=== PATIENT | female | born 1985 | race Caucasian/White ===

== ENCOUNTER 2017-01-05 21:02 | Observation (INO) | payer OTHER ==
[~2017-01-05] VITALS: Ht 160 cm; Wt 97.5 kg
[2017-01-05 21:04] VITALS: BP 133/67; PULSE 64; RESP 16; TEMP 98.1; O2SAT 98
[2017-01-05 22:26] VITALS: BP 156/92; PULSE 68; RESP 18
[2017-01-05] MEDS ORDERED: SODIUM CHLOR 0.9% 1000 ML INJ 1,000 ML IV ONE (23:00)
[2017-01-05] MEDS ORDERED: KETOROLAC TROMETHAMINE 30 MG/ML (IVP) VIAL IV PUSH ONE (23:00)
[2017-01-05 23:04] LABS: AUTOMATED NEUTROPHIL # 4.4 TH/MM3 (1.8-7.7); BASOPHIL # 0.1 TH/MM3 (0-0.2); BASOPHIL % 0.8 % (0.0-2.0); EOSINOPHIL # 0.2 TH/MM3 (0-0.4); EOSINOPHIL % 2.1 % (0.0-4.0); HEMO FLAGS DIFF FINAL; LYMPH % 31.9 % (9.0-44.0); LYMPHOCYTE # 2.7 TH/MM3 (1.0-4.8); MEAN CELL VOLUME 89.6 FL (80.0-100.0); MEAN CORPUSCULAR HEMOGLOBIN 30.9 PG (27.0-34.0); MEAN CORPUSCULAR HGB CONC 34.5 % (32.0-36.0); MONO % 12.7 % (0.0-8.0); NEUT % 52.5 % (16.0-70.0); PLATELET COUNT 287 TH/MM3 (150-450); RED BLOOD COUNT 4.58 MIL/MM3 (4.00-5.30); RED CELL DISTRIBUTION WIDTH 12.4 % (11.6-17.2); WHITE BLOOD COUNT 8.5 TH/MM3 (4.0-11.0)
[2017-01-05 23:32] LABS: ALT (GPT) 35 U/L (10-53); ANION GAP 8 MEQ/L (5-15); AST (GOT) 16 U/L (15-37); BICARBONATE 28.8 MEQ/L (21.0-32.0); BLOOD UREA NITROGEN 10 MG/DL (7-18); CHLORIDE 106 MEQ/L (98-107); GLOMERULAR FILTRATION RATE 86 ML/MIN (>89); POTASSIUM 3.6 MEQ/L (3.5-5.1); SODIUM (NA) 143 MEQ/L (136-145)
[2017-01-05 23:35] LABS: ALKALINE PHOSPHATASE 66 U/L (45-117); BETA HCG QUANT LESS THAN 1 MIU/ML (0-5); TOTAL BILIRUBIN ADULT 0.2 MG/DL (0.2-1.0)
[2017-01-05 23:43] VITALS: BP 152/85; PULSE 60; RESP 16; O2SAT 100
--- NOTE | 2017-01-05 23:48 | PD ---
HPI Chief Complaint: Syncope/Near-Syncope Time Seen by Provider: 22:16 Travel History International Travel<30 days: No Contact w/Intl Traveler<30days: No Traveled to known affect area: No History of Present Illness HPI Is a 31-year-old woman who presents to the emergency department complaining of recurrent episodes of syncope. She's never had trouble with this before. Starting 2 days ago she had an episode where she felt briefly lightheaded after using the bathroom. She didn't came to on the bed where her partner had carried her. She had no recollection of any of the events. She had a second episode on Sunday where she was in the closet and again woke up on the floor. She fall and on her face. She was seen at an outside hospital and had a negative workup that included a head CT and labs. They thought it was happening because she was on her menstrual cycle. She is a history of PCO asbeginning menstrual cycles for past 6 months or so. She denies it being especially heavy. She did have little bit of bloody stool with some abdominal pain, but otherwise had been feeling well. She had another episode and went back to the emergency department History Past Medical History Medical History: Denies Significant Hx LMP: 01/05/17 Social History Alcohol Use: No Tobacco Use: No Allergies-Medications (Allergen,Severity, Reaction): Coded Allergies: Ancef (Verified Allergy, Severe, Anaphylaxis, 01/05/17) Morphine (Verified Allergy, Intermediate, Hives, 01/05/17) Reported Meds & Prescriptions Reported Meds & Active Scripts Active No Active Prescriptions or Reported Medications Physical Exam Narrative GENERAL: Well-appearing 31-year-old woman, no acute distress. SKIN: Warm and dry. HEAD: Atraumatic. Normocephalic. EYES: Pupils equal and round. No scleral icterus. No injection or drainage. ENT: No nasal bleeding or discharge. Mucous membranes pink and moist. NECK: Trachea midline. No JVD. CARDIOVASCULAR: Regular rate and rhythm. No murmur appreciated. RESPIRATORY: No accessory muscle use. Clear to auscultation. Breath sounds equal bilaterally. GASTROINTESTINAL: Abdomen soft, non-tender, nondistended. Hepatic and splenic margins not palpable. MUSCULOSKELETAL: No obvious deformities. No edema. NEUROLOGICAL: Awake and alert. No obvious cranial nerve deficits. Motor grossly within normal limits. Normal speech. PSYCHIATRIC: Appropriate mood and affect; insight and judgment normal. Data Data Last Documented VS Vital Signs Date Time Temp Pulse Resp B/P Pulse Ox O2 Delivery O2 Flow Rate FiO2 01/05/17 22:26 68 18 156/92 Room Air 01/05/17 21:04 98.1 98 Orders Electrocardiogram (01/05/17 ) Complete Blood Count With Diff (01/05/17 22:37) Comprehensive Metabolic Panel (01/05/17 22:37) Beta Hcg (Quant/Titer) (01/05/17 22:37) Iv Access Insert/Monitor (01/05/17 22:37) Sodium Chlor 0.9% 1000 Ml Inj (Ns 1000 M (01/05/17 23:00) Ketorolac Inj (Toradol Inj) (01/05/17 23:00) Labs Laboratory Tests Test 01/05/17 22:40 White Blood Count 8.5 TH/MM3 Red Blood Count 4.58 MIL/MM3 Hemoglobin 14.2 GM/DL Hematocrit 41.0 % Mean Corpuscular Volume 89.6 FL Mean Corpuscular Hemoglobin 30.9 PG Mean Corpuscular Hemoglobin 34.5 % Concent Red Cell Distribution Width 12.4 % Platelet Count 287 TH/MM3 Mean Platelet Volume 9.1 FL Neutrophils (%) (Auto) 52.5 % Lymphocytes (%) (Auto) 31.9 % Monocytes (%) (Auto) 12.7 % Eosinophils (%) (Auto) 2.1 % Basophils (%) (Auto) 0.8 % Neutrophils # (Auto) 4.4 TH/MM3 Lymphocytes # (Auto) 2.7 TH/MM3 Monocytes # (Auto) 1.1 TH/MM3 Eosinophils # (Auto) 0.2 TH/MM3 Basophils # (Auto) 0.1 TH/MM3 CBC Comment DIFF FINAL Differential Comment Sodium Level 143 MEQ/L Potassium Level 3.6 MEQ/L Chloride Level 106 MEQ/L Carbon Dioxide Level 28.8 MEQ/L Anion Gap 8 MEQ/L Blood Urea Nitrogen 10 MG/DL Creatinine 0.78 MG/DL Estimat Glomerular Filtration 86 ML/MIN Rate Random Glucose 86 MG/DL Calcium Level 8.9 MG/DL Total Bilirubin 0.2 MG/DL Aspartate Amino Transf 16 U/L (AST/SGOT) Alanine Aminotransferase 35 U/L (ALT/SGPT) Alkaline Phosphatase 66 U/L Total Protein 7.2 GM/DL Albumin 3.7 GM/DL Human Chorionic Gonadotropin, LESS THAN 1 Quant MIU/ML MDM Medical Decision Making Medical Screen Exam Complete: Yes Emergency Medical Condition: Yes Interpretation(s) My review of EKG: Sinus bradycardia rate of 57, normal axis, normal intervals, no ischemia. LABS: CBC unremarkable. CMP unremarkable HCG negative Differential Diagnosis Arrhythmia, vasovagal episodes, pots syndrome, anxiety, anemia, other Narrative Course Medical decision making This a 31-year-old woman presents to the emergency department with 3 syncopal episodes in the past 48 hours with no history of similar symptoms. No clear precipitants. She does have some premonitory lightheadedness lasting just a few seconds. No clear seizure like activity. We'll risk for arrhythmia. We' ll plan on trying to obtain outpatient records. Monitor on telemetry. Consider EEG, tilt table testing, her for further evaluation as an outpatient. Diagnosis Primary Impression: Syncope Qualified Code: R55 - Syncope, unspecified syncope type Scripts No Active Prescriptions or Reported Meds Maged Capone MD Jan 05, 2017 23:48
[2017-01-06] MEDS ORDERED: SODIUM CHLORIDE 0.9% FLUSH 5 ML FLUSH IVF PRN
[2017-01-06 02:24] VITALS: O2SAT 100
[2017-01-06 03:29] VITALS: BP 134/83; PULSE 55; RESP 18; TEMP 98.6; O2SAT 98
[2017-01-06] MEDS: ACETAMINOPHEN/HYDROcodone 325 MG/7.5 MG TAB PO PRN ×3 (04:15→14:32)
--- NOTE | 2017-01-06 08:30 | RADRPT ---
EXAM DATE/TIME: 01/06/2017 08:04 [facility] COMPARISON: No previous studies available for comparison. INDICATIONS : Right hip pain post fall yesterday MEDICAL HISTORY : None. SURGICAL HISTORY : None. ENCOUNTER: Initial ACUITY: 1 day PAIN SCORE: 5/10 LOCATION: Right entire hip FINDINGS: Examination of the right hip was performed with AP Pelvis. The primary and secondary trabecular amrit huma of the femoral neck is intact. The hip joint is of normal width without significant sclerosis or bony hypertrophy. The acetabulum is grossly intact. CONCLUSION: Unremarkable right hip. Ted Monterroso MD on January 06, 2017 at 8:29 Board Certified Radiologist. This report was verified electronically.
[2017-01-06 08:40] VITALS: BP 130/86; PULSE 63; RESP 18; TEMP 98.2; O2SAT 97
[2017-01-06] MEDS: SODIUM CHLORIDE 0.9% FLUSH 5 ML FLUSH IVF SCH ×2 (08:53→20:08)
[2017-01-06 11:17] VITALS: BP 132/76; PULSE 65; RESP 18; TEMP 97.8; O2SAT 97
--- NOTE | 2017-01-06 12:59 | EKG ---
Date Performed: 01/05/2017 Time Performed: 21:58:25 PTAGE: 31 years EKG: SINUS BRADYCARDIA BORDERLINE ECG NO PREVIOUS TRACING DOCTOR: Allan Rosas Interpretating Date/Time 01/06/2017 12:58:20
[2017-01-06] MEDS ORDERED: NAPROXEN 500 MG TAB PO ONE (16:30)
[2017-01-06] MEDS ORDERED: MAGNESIUM CITRATE SOLN 300 ML BTL PO ONE ×2 (17:00→19:30)
--- NOTE | 2017-01-06 17:10 | RADRPT ---
EXAM DATE/TIME: 01/06/2017 16:18 [facility] COMPARISON: No previous studies available for comparison. INDICATIONS : Abdominal Pain MEDICAL HISTORY : None. SURGICAL HISTORY : Gallbladder surgery, Ovarian cyst removal ENCOUNTER: Initial ACUITY: 1 day PAIN SCORE: 8/10 LOCATION: Bilateral Abdomen FINDINGS: Supine view of the abdomen was performed. The abdominal bowel gas pattern is normal. No abnormal ma sses, calcifications, or organomegaly is seen. The osseous structures are unremarkable. CONCLUSION: 1. No acute findings. Previous cholecystectomy. Emanuel Prado MD on January 06, 2017 at 17:08 Board Certified Radiologist. This report was verified electronically.
--- NOTE | 2017-01-06 17:50 | HHI.HP ---
HPI Service [facility] Hospitalists Primary Care Physician No Primary Care Physician Admission Diagnosis Syncope Chief Complaint: loc Travel History International Travel<30 Days: No Contact w/Intl Traveler <30 Da: No Traveled to Known Affected Are: No History of Present Illness Pt is 31 yo female presenting to ED complained of passing out x 3 since Sunday. Pt gives hx as well as her . Says she has hx pcos. Last week had a very heavy menstrual cycle. Had alot of abdomen cramps and pain that started in epigastric area. Pt passed out 3 times. Once coming from the bathroom back to bed, once while doing laundry and passed out into the closet, then again walking in her bedroom. The pain may have correlated with her developing dizzy sensation then losing conciousness. Apparently she hit side of face on tile floor. No sz activity was reported and no loss bowel/bladder. No cp or palpitations. No n/v/d. Pt was clammy according to her . They went to [facility] x 2 and had labwork and CT head and I'm told that was nml. They report being told she may have passed out due to sudden blood loss from menstrual bleeding. They were given a narcotic pain med. At home Pt passed hard stool with blood on stool and on toilet paper, not in the water. She has had some persistence of the abdomen discomfort and cramping. Her is very protective during my visit and said " I am not taking my home until we get some answers". They are worried about a ruptured ovarian cyst. Review of Systems Other syncope x 3 abdomen cramping blood on stool/paper. Past Family Social History Past Medical History PCOS Allergies: Coded Allergies: Ancef (Verified Allergy, Severe, Anaphylaxis, 01/05/17) Morphine (Verified Allergy, Intermediate, Hives, 01/05/17) Family History nc Social History no etoh/tob Physical Exam Vital Signs heent neg heart reg. no murmer neck. no jvd/bruit lung cta abd mild diffuse tenderness. bs/nd ext no edema Vital Signs Date Time Temp Pulse Resp B/P Pulse Ox O2 Delivery O2 Flow Rate FiO2 01/06/17 11:17 97.8 65 18 132/76 97 01/06/17 09:53 18 01/06/17 08:40 98.2 63 18 130/86 97 01/06/17 03:29 98.6 55 18 134/83 98 01/06/17 02:24 100 01/05/17 23:43 60 16 152/85 100 Room Air 01/05/17 22:26 68 18 156/92 Room Air 01/05/17 21:04 98.1 64 16 133/67 98 Laboratory Laboratory Tests Test 01/05/17 22:40 White Blood Count 8.5 Red Blood Count 4.58 Hemoglobin 14.2 Hematocrit 41.0 Mean Corpuscular Volume 89.6 Mean Corpuscular Hemoglobin 30.9 Mean Corpuscular Hemoglobin 34.5 Concent Red Cell Distribution Width 12.4 Platelet Count 287 Mean Platelet Volume 9.1 Neutrophils (%) (Auto) 52.5 Lymphocytes (%) (Auto) 31.9 Monocytes (%) (Auto) 12.7 Eosinophils (%) (Auto) 2.1 Basophils (%) (Auto) 0.8 Neutrophils # (Auto) 4.4 Lymphocytes # (Auto) 2.7 Monocytes # (Auto) 1.1 Eosinophils # (Auto) 0.2 Basophils # (Auto) 0.1 CBC Comment DIFF FINAL Differential Comment Sodium Level 143 Potassium Level 3.6 Chloride Level 106 Carbon Dioxide Level 28.8 Anion Gap 8 Blood Urea Nitrogen 10 Creatinine 0.78 Estimat Glomerular Filtration 86 Rate Random Glucose 86 Calcium Level 8.9 Total Bilirubin 0.2 Aspartate Amino Transf 16 (AST/SGOT) Alanine Aminotransferase 35 (ALT/SGPT) Alkaline Phosphatase 66 Total Protein 7.2 Albumin 3.7 Human Chorionic Gonadotropin, LESS THAN 1 Quant Lipase 271 Result Diagram: 01/05/17223901/05/172239 Assessment and Plan Problem List: (1) Syncope Status: Acute Plan: Pt had syncope x 3. Historically it sounds possible to be vasovagal syncope in relation to abdomen pain/cramping. Had some blood on stool/paper that sounds secondary to constipation/hemorrhoid Has hx pcos and pt/ concerned about ruptured ovarian cyst as she had in past cont tele/holter given ivf last night. not appearing orthostatic will check kub for constipation and give laxates transvag. u/s to eval ovaries. ambulate c/o msk due to falls. asking for stronger pain meds. Problem Qualifiers (1) Syncope: Qualified Code: R55 - Syncope, unspecified syncope type Narendra Melchor MD Jan 06, 2017 17:50
[2017-01-06] MEDS ORDERED: SIMETHICONE 125 MG CHEWABLE TAB PO SCH (18:00)
[2017-01-06 20:00] VITALS: BP 115/60; PULSE 54; PULSE 62; RESP 19; TEMP 98.3; O2SAT 96
[2017-01-06] MEDS: SIMETHICONE 125 MG CHEWABLE TAB PO SCH (20:07)
[2017-01-06] MEDS: ACETAMINOPHEN/HYDROcodone 325 MG/10 MG TAB PO PRN (20:12)
[2017-01-06] MEDS: NAPROXEN 500 MG TAB PO SCH (21:32)
--- NOTE | 2017-01-06 22:55 | RADRPT ---
EXAM DATE/TIME: 01/06/2017 20:43 [facility] COMPARISON: No previous studies available for comparison. INDICATIONS : Pelvic pain. MEDICAL HISTORY : Ovarian cysts. SURGICAL HISTORY : Cholecystectomy. ENCOUNTER: Initial ACUITY: 3 days PAIN SCORE: 6/10 LOCATION: Bilateral pelvis MEASUREMENTS: UTERUS: 9.2 x 3.3 x 4.4 cm ENDOMETRIAL STRIPE: 5 mm RIGHT OVARY: 4.0 x 2.1 x 3.2 cm LEFT OVARY: 2.8 x 2.0 x 2.3 cm FINDINGS: UTERUS: The myometrium has homogeneous echotexture without mass. RIGHT OVARY: Ovary contains no mass or significant cystic lesion. 2 cm follicular cysts. LEFT OVARY: Ovary contains no mass or significant cystic lesion. MISCELLANEOUS: Small amount of free fluid. CONCLUSION: 1. 2 cm follicular cyst right ovary. Trace free fluid. Left ovary and uterus unremarkable. Emanuel Prado MD on January 06, 2017 at 22:53 Board Certified Radiologist. This report was verified electronically.
[2017-01-07] VITALS (11 sets, daily range): BP systolic 104–143; BP diastolic 55–85; PULSE 55–72; RESP 18–19; TEMP 97.7–98; O2SAT 94–96
[2017-01-07] MEDS: ACETAMINOPHEN/HYDROcodone 325 MG/10 MG TAB PO PRN ×4 (03:35→22:23)
[2017-01-07] MEDS: SIMETHICONE 125 MG CHEWABLE TAB PO SCH ×4 (08:57→22:23)
[2017-01-07] MEDS: SODIUM CHLORIDE 0.9% FLUSH 5 ML FLUSH IVF SCH ×2 (08:57→22:22)
[2017-01-07] MEDS: NAPROXEN 500 MG TAB PO SCH ×2 (08:57→22:23)
--- NOTE | 2017-01-07 14:28 | HHI.PR ---
Subjective Remarks Pt ambulating with . says she was dizzy x 2 lying today and x 1 ambulating no syncope. bowels moving and abdomen feels much better. says pt gets tired after dizzy spells and falls immediately to sleep on her chest. Objective Vitals heent neg heart reg lung cta abd s/nt ext no edema no jvd/bruit Vital Signs Date Time Temp Pulse Resp B/P Pulse Ox O2 Delivery O2 Flow Rate FiO2 01/07/17 14:16 134/85 01/07/17 14:16 122/73 01/07/17 14:15 143/76 01/07/17 11:40 65 18 128/65 94 01/07/17 10:44 64 01/07/17 09:30 95 21 01/07/17 07:20 97.7 55 18 104/57 95 01/07/17 04:48 98.0 59 19 116/74 95 01/07/17 00:40 98.0 56 19 108/55 95 01/06/17 20:00 98.3 62 19 115/60 96 01/06/17 20:00 54 01/06/17 01/06/17 01/07/17 15:00 23:00 07:00 Intake Total 480 ml 240 ml Balance 480 ml 240 ml Intake Oral 480 ml 240 ml # Voids 3 3 # Bowel Movements 0 0 Result Diagram: 01/05/17223901/05/170 A/P Problem List: (1) Syncope Status: Acute Plan: Pt had syncope x 3. Historically it sounds possible to be vasovagal syncope in relation to abdomen pain/cramping. Had some blood on stool/paper that sounds secondary to constipation/hemorrhoid Has hx pcos and pt/ concerned about ruptured ovarian cyst as she had in past cont tele/holter given ivf and negative orthostatics kub showed increased constipation..now abdomen pain better with mag citrate and bm transvag. u/s to eval ovaries. just one 2cm cyst noted ambulate c/o msk due to falls. ambulate hallway. holter pending. tft pending. if stable dc home later today. Problem Qualifiers (1) Syncope: Qualified Code: R55 - Syncope, unspecified syncope type Narendra Melchor MD Jan 07, 2017 14:28
[2017-01-07 17:08] LABS: FREE T4 1.12 NG/DL (0.76-1.46)
[2017-01-08 01:11] VITALS: BP 118/70; PULSE 84; RESP 18; TEMP 97.8; O2SAT 97
[2017-01-08 04:51] VITALS: BP 121/78; PULSE 75; RESP 18; TEMP 98.4; O2SAT 97
[2017-01-08] MEDS: ACETAMINOPHEN/HYDROcodone 325 MG/10 MG TAB PO PRN (05:07)
[2017-01-08 08:00] VITALS: BP 102/56; PULSE 58; RESP 18; TEMP 97.8; O2SAT 97
[2017-01-08] MEDS: NAPROXEN 500 MG TAB PO SCH (09:20)
[2017-01-08] MEDS: SIMETHICONE 125 MG CHEWABLE TAB PO SCH (09:20)
[2017-01-08] MEDS: SODIUM CHLORIDE 0.9% FLUSH 5 ML FLUSH IVF SCH (09:21)
--- NOTE | 2017-01-08 10:53 | HM ---
Date Performed: 01/06/2017 Time Performed: 18:56:00 HOOKUP DATE: 01/06/17 06:56:00 PM Sat ANALYSIS START TIME: 01/06/2017 7:01:00 PM ANALYSIS END TIME: 01/07/2017 5:48:44 PM PATIENT AGE: 31 PATIENT HEIGHT: 63 PATIENT WEIGHT: 214 DRUG LIST PATIENT DIAGNOSIS: SYNCOPE TEST NARRATIVE: The patient's average heart rate was 62 BPM. No episodes of tachycardia wer e noted. Heart rates less than 50 BPM were noted 12% of the time. No pauses exceeding 2.0 second s were noted. No ventricular ectopics were noted. 2 supraventricular ectopics, which represen nhan < 1% of the total beat count, were noted. The highest supraventricular ectopic frequency occurre d from 07:00 PM to 08:00 PM Sat. During this time 1 SVE(s) occurred. No episodes of ST depressio n (defined as -1.0 mm or more) were noted in channel 1. No episodes of ST depression (defined as -1. 0 mm or more) were noted in channel 2. No episodes of ST depression (defined as -1.0 mm or more) wer e noted in channel 3. TEST INTERPRETATION: Holter monitor demonstrates normal Sinus rhythm with sinus bradycardia down to 44 bpm at 5:46am and a maximum of 105 bpm at 9:19 on Sunday. A rare P AC was seen. No paroxysmal bradycardia or tachycardia arrhythmias were noted. Holter was otherwise no rmal. Signed by : Herberth Coffey
[2017-01-08] MEDS ORDERED: SIME1CHW11 PO (12:02)
[2017-01-08] MEDS ORDERED: HYDR-3583 PO (12:02)
[2017-01-08] MEDS ORDERED: NAPR500 PO (12:02)
--- NOTE | 2017-01-08 12:05 | HHI.DCPOC ---
Discharge Care Plan Diagnosis: (1) Syncope Goals to Promote Your Health * To prevent worsening of your condition and complications * To maintain your health at the optimal level Directions to Meet Your Goals Take your medications as prescribed Follow your dietary instruction Follow activity as directed Keep your appointments as scheduled Take your immunizations and boosters as scheduled If your symptoms worsen call your PCP, if no PCP go to Urgent Care Center or Emergency Room Smoking is Dangerous to Your Health. Avoid second hand smoke Call the 24-hour hour crisis hotline for domestic abuse at Ramón Clark DO Jan 08, 2017 12:05
--- NOTE | 2017-01-08 12:14 | HHI.DS ---
Discharge Summary Admission Date Jan 05, 2017 at 23:51 Discharge Date: Jan 08, 2017 Admitting Diagnosis Syncope (1) Syncope Diagnosis: Principal Brief History Pt is 31 yo female presenting to ED complained of passing out x 3 since Sunday. Pt gives hx as well as her . Says she has hx pcos. Last week had a very heavy menstrual cycle. Had alot of abdomen cramps and pain that started in epigastric area. Pt passed out 3 times. Once coming from the bathroom back to bed, once while doing laundry and passed out into the closet, then again walking in her bedroom. The pain may have correlated with her developing dizzy sensation then losing conciousness. Apparently she hit side of face on tile floor. No sz activity was reported and no loss bowel/bladder. No cp or palpitations. No n/v/d. Pt was clammy according to her . They went to [facility] ED x 2 and had labwork and CT head and I'm told that was nml. They report being told she may have passed out due to sudden blood loss from menstrual bleeding. They were given a narcotic pain med. At home Pt passed hard stool with blood on stool and on toilet paper, not in the water. She has had some persistence of the abdomen discomfort and cramping. Her is very protective during my visit and said " I am not taking my home until we get some answers". They are worried about a ruptured ovarian cyst. CBC/BMP: 01/05/17 2240 01/05/17 2240 Significant Findings Laboratory Tests Test 01/05/17 22:40 Monocytes (%) (Auto) 12.7 % (0.0-8.0) Monocytes # (Auto) 1.1 TH/MM3 (0-0.9) Estimat Glomerular Filtration 86 ML/MIN (>89) Rate Imaging Last Impressions Pelvis Ultrasound 01/06/17 0000 Signed Impressions: Service Date/Time: Friday, January 06, 2017 20:43 - CONCLUSION: 1. 2 cm follicular cyst right ovary. Trace free fluid. Left ovary and uterus unremarkable. Emanuel Prado MD Hip and Pelvis X-Ray 01/06/17 0000 Signed Impressions: Service Date/Time: Friday, January 06, 2017 08:04 - CONCLUSION: Unremarkable right hip. Ted Monterroso MD Abdomen X-Ray 01/06/17 0000 Signed Impressions: Service Date/Time: Friday, January 06, 2017 16:18 - CONCLUSION: 1. No acute findings. Previous cholecystectomy. Emanuel Prado MD PE at Discharge GENERAL: This is a well-nourished, well-developed patient, in no apparent distress. CARDIOVASCULAR: Regular rate and rhythm without murmurs, gallops, or rubs. RESPIRATORY: Clear to auscultation. Breath sounds equal bilaterally. No wheezes , rales, or rhonchi. GASTROINTESTINAL: Abdomen soft, non-tender, nondistended. Normal active bowel sounds MUSCULOSKELETAL: Extremities without clubbing, cyanosis, or edema. NEURO: Alert & Oriented x4 to person, place, time, situation. Moves all ext x4 Hospital Course (1) Syncope Status: Acute Plan: Pt had syncope x 3. Historically it sounds possible to be vasovagal syncope in relation to abdomen pain/cramping. Had some blood on stool/paper that sounds secondary to constipation/hemorrhoid Has hx pcos and pt/ concerned about ruptured ovarian cyst as she had in past - Telemetry reviewed (01/08/17) --> NSR - Holter (01/07/17) --> predominantly NSR - Pt was given ivf and negative orthostatics - kub showed increased constipation & pt was treated with laxatives with resolution of her abdominal pain - Pt had transvag (01/06/17) u/s to eval ovaries. just one 2cm cyst noted - Pt c/o muscular skeletal pain d/t falls. Pt treated with naprosyn and prn norco - Pt reevaluated by Dr. Ramón Clark DO on the day of discharge. - Pt with NO new medical complaints. - Pt able to ambulate to the and eager for discharge - see discharge orders - Pt to f/u with [facility] PCP in 1 week - Pt has NOT yet selected a [facility] PCP. Pt instructed to call [facility], to select a PCP. Pt Condition on Discharge: Stable Discharge Disposition: Discharge Home Discharge Instructions DIET: Follow Instructions for: As Tolerated, No Restrictions Activities you can perform: Regular-No Restrictions Follow up Referrals: PCP Follow-up - 1 Week with [facility] PCP New Medications: Hydrocodone-Acetaminophen (Hydrocodone-Acetaminophen) 10-325 mg Tab 1 TAB PO Q4H PRN pain over 4 #7 Ref 0 TAB Naproxen (Naprosyn) 500 Mg Tab 500 MG PO Q12HR Pain Management #28 Ref 0 TAB Simethicone (Gas Relief Maximum Streng) 125 Mg Chw 125 MG PO QID PRN GAS RETENTION #28 Ref 0 Ramón Henriquez DO Jan 08, 2017 12:13
== END 2017-01-08 14:14 | disposition home or self-care (01) ==
LOC: NEPE 21:02 → NEDA 23:51 → NEPFCDU 01-06 02:54
PROVIDERS: ADMIT Hospitalist; ATTEND Hospitalist
DX: R55 Syncope and collapse (principal); K92.1 Melena; K59.00 Constipation, unspecified; N92.0 Excessive and frequent menstruation with regular cycle; R53.83 Other fatigue
CPT/HCPCS: 73502; 74000; 76856; 80053; 82607; 83690; 84439; 84443; 84702; 85025; 93005; 93225; 93226; 96361; 96374; 99285; G0378; J1885; J7030